=== PATIENT | female | born 1960 | race Caucasian/White ===

== ENCOUNTER → 2016-11-30 | Outpatient (CLI) | payer OTHER ==
[2016-11-30 12:23] LABS: ASPARTATE AMINO TRANSFERASE 29 IU/L (8-39); BILIRUBIN,TOTAL 0.5 mg/dL (0.3-1.2); BLOOD UREA NITROGEN 21 mg/dL (7-22); BUN/CREATININE RATIO 26.25 (6-20); CALCIUM 9.6 mg/dL (8.7-10.7); CHLORIDE 99 meq/L (98-112); CREATININE 0.8 mg/dL (0.50-1.20); EST GLOMERULAR FILTRATION > 60 (>60 ml/min/1.73m(2)); GLUCOSE 92 mg/dL (78-110); HDL CHOLESTEROL 74 mg/dL (40-150); POTASSIUM 4.7 meq/L (3.8-5.2); SODIUM 139 meq/L (135-145); TOTAL PROTEIN 7.9 g/dL (6.1-8.0); TRIGLYCERIDES 109 mg/dL (44-200)
[2016-11-30 12:24] LABS: CREATININE, URINE 134.5 MG/DL (15-500)
[2016-11-30 14:12] LABS: FREE T4 (FREE THYROXINE) 1.14 ng/dL (0.93-1.71)
== END ==
LOC: MOB LAB 11:12
PROVIDERS: ATTEND Nurse Practitioner Family
DX: E11.9 Type 2 diabetes mellitus without complications (principal); I10 Essential (primary) hypertension; E03.9 Hypothyroidism, unspecified; E66.01 Morbid (severe) obesity due to excess calories
CPT/HCPCS: 36415; 80053; 80061; 82043; 83036; 84439; 84443; 99213

== ENCOUNTER → 2016-12-15 | Outpatient (CLI) | payer OTHER ==
--- NOTE | 2016-12-15 13:18 | DI ---
RIGHT SHOULDER, 12/15/2016 11:31 AM: Clinical History: Right shoulder pain. Previous Exam: 09/07/2014. 3 views are submitted. There is no acute soft tissue, osseous, or joint abnormality. The patient is s tatus post resection of the lateral head of the clavicle. The visualized portions of the right apex a nd right lung are normal. There is a prominent amount of calcification in the first costosternal junc tion. Reading: Status post resection of the lateral head of the clavicle. The exam is otherwise normal.
--- NOTE | 2016-12-15 13:24 | DI ---
RIGHT WRIST, 12/15/2016 11:31 AM: Clinical History: Right wrist pain. Previous Exam: None at this facility. Comparison is made with views of the right little finger from 10/18/2012 that also contain views of the wrist. 3 views are submitted. There is no acute soft tissue, osseous, or joint abnormality. The distal radia l articular surface is depressed on the medial aspect corresponding to the lunate fossa and this andrade ent may have had previous trauma to the distal radius. Readin. There is no acute fracture or dislocation. 2. The articular surface of the distal radius may have undergone remodeling.
== END ==
LOC: ORTHO 12:01
PROVIDERS: ATTEND Orthopaedic Surgery
DX: M25.531 Pain in right wrist (principal); M25.511 Pain in right shoulder; Z98.890 Other specified postprocedural states; M19.031 Primary osteoarthritis, right wrist; M17.11 Unilateral primary osteoarthritis, right knee; M75.101 Unspecified rotator cuff tear or rupture of right shoulder, not specified as traumatic
CPT/HCPCS: 73030; 73110

== ENCOUNTER 2016-12-21 15:39 | Emergency (ER) | payer OTHER ==
[2016-12-21] MEDS ORDERED: Prochlorperazine Edisylate Inj 10mg/2ml vial IVP ONE (16:00)
[2016-12-21] MEDS ORDERED: diphenhydrAMINE 50 MG/1 ML VIAL IVP ONE (16:00)
[2016-12-21] MEDS ORDERED: KETOROLAC 30 MG/1 ML VIAL IVP ONE (16:00)
[2016-12-21] MEDS ORDERED: Sodium Chloride 0.9% 1,000 ML PRIMARY IV ONE (16:00)
[2016-12-21] MEDS ORDERED: Magnesium Sulfate 2gm (Premix) 2 GM in Premix 1 BAG IV ONE (16:00)
[2016-12-21] MEDS ORDERED: DEXAMETHASONE PF 10 MG/1 ML VIAL IV ONE (16:00)
--- NOTE | 2016-12-21 16:10 | PDOC ---
Headache HPI - General Chief Complaint: Headache Stated Complaint: MIGRAINE Date Seen by Provider: 12/21/16 Time Seen by Provider: 16:06 Source: POSITIVE: Patient Exam Limitations: POSITIVE: No limitations Nurse's Notes Reviewed & Considered: Yes - History of Present Illness Initial Comments: Patient developed a migraine today while undergoing MRI of her shoulder. History of migraines that she states her very frequent. States that this is not the worst migraine she has ever had but is more typical in nature. She denies any fever chills sweats. She does have nausea but no vomiting. Denies any diarrhea or constipation. She does have some blurry vision. No shortness breath, cough, or chest pain. Body Location Affected: REPORTS: Head Timing: REPORTS: Abrupt Duration: 1-3 hours Severity: Moderate Quality: REPORTS: "Pain", Throbbing Context: REPORTS: Other (History of migraine headaches) Associated Symptoms: REPORTS: Sensitivity to Light, Visual Disturb Preceding, Nausea Any Prior Injuries Related to Current Complaint?: No - Patient Home Medications Home Medications: Home Medications Ascorbic Acid [Vitamin C] 1,000 mg PO DAILY tab 11/27/12 Bee Pollen 1,160 mg PO DAILY cap 11/27/12 Beta-Carotene [Beta Carotene] 10,000 unit PO DAILY cap 11/27/12 Bone Meal/Ergocalciferol [Bone Meal-Vitamin D Tablet] 6 each PO DAILY tab 11/27 Calcium/Magnesium [Dolomite Tablet] 2 each PO DAILY tab 11/27/12 Lecithin 2,500 gm MC DAILY cap 11/27/12 Vitamin A 10,000 unit ORAL QD capsule 11/27/12 Vitamin A/Vitamin D3 [Vitamin A & D Softgel] 1 each PO DAILY cap 11/27/12 Vitamin E Acetate [Vitamin E] 800 unit PO DAILY cap 11/27/12 Blood Sugar Diagnostic [Freestyle Lite Test Strips] 1 each MC QID #120 strip 02/25 Nystatin [Nystop] 60 gm TP BID #1 bottle 01/18/15 Ropinirole HCl 1 tab PO HS PRN #30 tab 03/17/15 Tramadol HCl [Tramadol Hcl Er] 1 tab PO DAILY tab 02/04/16 Amitriptyline HCl 50 mg PO TID #270 tab 09/26/16 Clotrimazole/Betamethasone Dip [Lotrisone Cream] 0.5 gm TOPICAL BID #1 tube Levothyroxine Sodium 75 mcg ORAL QD #90 tab 11/30/16 Propranolol HCl 60 mg PO BID tab 11/30/16 - Patient Allergies Allergies/Adverse Reactions: Allergies Allergy/AdvReac Type Severity Reaction Status Date / Time codeine [Codeine] Allergy Severe ANAPHLAXIS Verified 07/21/16 14:17 acetaminophen [From Tylenol] Allergy Intermediate ANAPHLAXIS Verified 07/21/16 14:17 doxycycline [Doxycycline] Allergy Intermediate SWELLING Verified 07/21/16 14:17 ibuprofen [From Advil] Allergy Intermediate RASH Verified 07/21/16 14:17 iodine Allergy Intermediate RASH Verified 07/21/16 14:17 naproxen sodium [From Aleve] Allergy Intermediate RASH Verified 07/21/16 14:17 FUNGICIDES Allergy Severe SWELLING Uncoded 07/21/16 14:17 ARTIFICIAL SWEETNERS Allergy Intermediate DIFFICULTY Uncoded 07/21/16 14:17 SWALLOWING NUZHAT PRODUCTS Allergy Intermediate DIFFICULTY Uncoded 07/21/16 14:17 SWALLOWING CHLORINE Allergy Intermediate DIFFICULTY Uncoded 07/21/16 14:17 SWALLOWING PESTICIDES Allergy Intermediate RASH Uncoded 07/21/16 14:17 POWDERED EGGS Allergy Intermediate DIFFICULTY Uncoded 07/21/16 14:17 SWALLOWING SAGEBRUSH Allergy Mild RASH Uncoded 07/21/16 14:17 artificial butter AdvReac Severe elevates BP Uncoded 07/21/16 14:17 GREEK PAINTBRUSH AdvReac Intermediate NOT Uncoded 07/21/16 14:17 APPLICABLE hairspray AdvReac NOT Uncoded 07/21/16 14:17 APPLICABLE Past Medical History - heen HEENT History: Other (please comment) Additional HEENT History: hypersensitive hearing ,wears glasses Cardiovascular History: Hypertension, Other (please comment) Additional Cardiovasular History: VENOUS STASIS DERMATITIS Respiratory History: Sleep Apnea, Other (please comment) Additional Respiratory History: ON CPAP AT 16 CM Gastrointestinal History: Denies History, Other (please comment) Additional Gastrointestinal History: MORBID OBESITY Genitourinary History: Denies History Endocrine History: Type 2 Diabetes (diet), Type 2 Diabetes (oral), Hypothyroidism, Other (please comment) Additional Endocrine History: NUMULAR ECZEMA Musculoskeletal History: Other (please comment) Prosthesis or Implant: Yes (L knee replacement titanium) Additional Musculoskeletal History: 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, C5-6 BULGING WITH IMPINGEMENT ON R NEUROFORAMEN; RT SHOULDER SURGERY ("TEAR IN ROTATOR CUFF) Neurological History: Migraines Additional Neurological History: RESTLESS LEG SYNDROME Blood Disorders: Denies History Psychiatric History: Other (please comment) Additional Psychiatric History: had depression a few years ago ,insomnia History of Sexually Transmitted Diseases: No Cancer History: Denies History History of MDRO: No History of Other Communicable Diseases: No Alcohol Use: None Substance Use Type: None Previous Surgical History: Yes Type / Date of Surgery: L TKA KNEE, BILAT CARPAL TUNNEL, RIGHT KNEE SCOPE, RT SHOULDER (08/25/14) Anesthesia Reactions: No Malignant Hyperthermia: No Significant Family History: Other (please comment) Additional Family History: unknown ROS - Limitations ROS Limitations: No Limitations Constitution: REPORTS: Denies Symptoms Cardiovascular: REPORTS: Denies Cardiac Symptoms Respiratory: REPORTS: Denies Resp Symptoms Neurological: REPORTS: Headache Gastrointestinal: REPORTS: Nausea Endocrine: REPORTS: Denies Symptoms Musculoskeletal: REPORTS: Denies MS Symptoms Genitourinary: REPORTS: Denies Symptoms Eyes: REPORTS: Eye Pain, Vision Changes ENT: REPORTS: Denies Symptoms Skin: REPORTS: Denies Skin Symptoms Lympathic: REPORTS: Denies Lympathic Symptoms Immunologic: POSITIVE: Denies Symptoms Psychiatric: POSITIVE: Denies Psych Symptoms Headache Exam - General Appearance General Appearance: POSITIVE: Alert, Cooperative, No Evidence of Trauma, Moderate Distress - HEENT Head / Face: POSITIVE: Atraumatic, Normal Inspection, No Facial Swelling Eyes: POSITIVE: Inspection Normal, PERRL, EOM's Intact, Eyelids Uninjured, No Nystagmus, No Globe Trauma, Sclera Normal Ears: POSITIVE: Ears Normal Inspection, Auricle Normal Nose: POSITIVE: Inspection Normal, No Apparent Trauma, Nares Normal, No CSF Leak Oropharynx: POSITIVE: External Inspection Nml, Pharynx Inspect. Nml, Airway Intact, Voice Normal, Moist Mucous Membranes, No Oral Injury, Lips Normal, Gums Normal, No Drooling, No Thrush Dental: POSITIVE: No Dental Injury - Pupil Size Pupil Size: 4 mm: Bilateral - Neck Neck: POSITIVE: Normal Inspection, Supple - Respiratory / CVS Respiratory / CVS: POSITIVE: Chest Non-Tender, No Respiratory Distress, Heart Sounds Normal, Regular Rate/Rhythm - Abdomen Abdomen: Soft: (All Quadrants), Normal Bowel Sounds: (All Quadrants), Denies Tenderness: (All Quadrants) - Skin Skin: POSITIVE: Intact, Normal Palpation - Extremities Extremity: Non-Tender: (All Extremities), Normal ROM: (All Extremities), Normal Inspection: (All Extremities) - Neuro / Psych Higher Functions: POSITIVE: Alert, Oriented x3, Normal Speech, Mood Appropriate , Affect Appropriate Cranial Nerves: POSITIVE: Normal As Tested, No Evidence of Acute CVA Cerebellar: POSITIVE: Normal As Tested Sensorimotor: POSITIVE: No Motor Deficits, No Sensory Deficits Headache Progress - Results Reviewed by me Lab Results Reviewed: Yes Lab Results:: Laboratory Results 12/21/16 Range/Units 15:50 Sodium 140 (135-145) meq/L Potassium 4.2 (3.8-5.2) meq/L Chloride 100 (98-112) meq/L Carbon Dioxide 28 (23-33) meq/L Anion Gap 12 (5-20) BUN 15 (7-22) mg/dL Creatinine 0.6 (0.50-1.20) mg/dL Estimated GFR > 60 (>60 ml/min/1.73m(2)) BUN/Creatinine Ratio 25.00 H (6-20) Glucose 99 (78-110) mg/dL Calculated Osmolality 290.0 (267-292) mOsm/kg Calcium 9.4 (8.7-10.7) mg/dL Magnesium 2.1 (1.6-2.4) mg/dL Total Bilirubin 0.8 (0.3-1.2) mg/dL AST 31 (8-39) IU/L ALT 31 (9-52) IU/L Alkaline Phosphatase 145 H (38-126) IU/L Total Protein 8.0 (6.1-8.0) g/dL Albumin 4.2 (3.5-4.8) g/dL Globulin 3.8 (2.50-4.10) g/dL Albumin/Globulin Ratio 1.10 L (1.3-2.0) mg/g - Patient's Progress Pain Medication Addressed: POSITIVE: Yes Re-Examine Time:: 17:02 Status: POSITIVE: Improved MDM / ED Course: Patient was examined, an IV started, blood drawn and sent to the lab for studies. Patient received a cocktail of saline, Toradol, dexamethasone, Benadryl, magnesium, and Compazine. Her headache resolved. Assessment: Migraine headache Plan: Discharge home follow up with primary care physician. - Consult Counseled: POSITIVE: Patient, RE: Lab Results, RE: DX, RE: Need for F/U Patient Care Time - Estimated PCT Patient Care Time (In Minutes): 30 Vital Signs - VS Reviewed Vital Signs Reviewed: Yes Discharge Clinical Impression: Migraine headache Discharge Disposition: Discharged to Home Condition: Good Patient Instructions Given at Discharge: Migraine Headache (ED)
[2016-12-21 16:22] LABS: ASPARTATE AMINO TRANSFERASE 31 IU/L (8-39); BILIRUBIN,TOTAL 0.8 mg/dL (0.3-1.2); BLOOD UREA NITROGEN 15 mg/dL (7-22); CALCIUM 9.4 mg/dL (8.7-10.7); CHLORIDE 100 meq/L (98-112); CREATININE 0.6 mg/dL (0.50-1.20); EST GLOMERULAR FILTRATION > 60 (>60 ml/min/1.73m(2)); GLUCOSE 99 mg/dL (78-110); MAGNESIUM 2.1 mg/dL (1.6-2.4); POTASSIUM 4.2 meq/L (3.8-5.2); SODIUM 140 meq/L (135-145)
[2016-12-21 17:21] VITALS: RESP 16; TEMP 97.2
== END 2016-12-21 17:15 | disposition home or self-care (01) ==
LOC: ER 15:39
DX: G43.009 Migraine without aura, not intractable, without status migrainosus (principal); R11.0 Nausea; H53.8 Other visual disturbances; E11.9 Type 2 diabetes mellitus without complications; M25.511 Pain in right shoulder; S43.431A Superior glenoid labrum lesion of right shoulder, initial encounter; S46.811A Strain of other muscles, fascia and tendons at shoulder and upper arm level, right arm, initial encounter
CPT/HCPCS: 80053; 83735; 84443; 96361; 96365; 96375; 99282 ×2; J1200; J1885; 73221; J0780; J1100; J3475; J7030

== ENCOUNTER → 2016-12-21 | Outpatient (CLI) | payer OTHER ==
--- NOTE | 2016-12-23 21:07 | DI ---
MRI RIGHT SHOULDER SCAN, 12/21/2016 1:52 PM: Clinical History: Right shoulder pain. Previous Exam: 07/13/2014. Technique: Axial, coronal, and sagittal fat saturated PD; axial gradient FE; coronal fat saturatedT2 weighted; sagittal T2 weighted. Because of the size of the patient, it was difficult to position the right shoulder closed to the center of the magnetic field for optimal homogeneity. There is no soft tissue edema or joint effusion. Cystic degenerative changes are present in the humer al head in proximity to the attachment of the infraspinatus tendon. There is a small 10 mm paralabral cyst inferior to the labrum at the 6:00 position. The lateral head of the clavicle has been resected and there is a type I acromion. There is an articular surface partial thickness tear of the distal a spect of the conjoined tendon that measures 10 x 5 mm in transverse and AP dimensions. There is suspe cted mild tendinosis of the subscapularis, supraspinatus, and infraspinatus tendons. The teres minor tendon is normal. The tendon of the long head of the biceps muscle is not visualized in the rotator i nterval and this patient may have had resection with tenodesis. There is a type II SLAP tear with pos terior extension into the posterosuperior and posteroinferior quadrants terminating near the 6:00 pos ition where the paralabral cyst is visualized. There is no significant muscle atrophy or fatty infilt ration. Readin. Status post resection of the lateral head of the clavicle with probable tenodesis of the biceps t endon to the humeral head. There is a type II SLAP tear with posterior extension into the posterior s uperior and posterior inferior quadrants terminating at the 6:00 position where there is a 10 mm para labral cyst. There is an articular surface partial thickness tear of the conjoined tendon that measur es 10 x 5 mm in transverse and AP dimensions. Suspected tendinosis is present in the supraspinatus, i nfraspinatus, and subscapularis tendons. 2. The teres minor tendon is normal. There is a type I acromion. No muscle atrophy is identified.
== END ==
LOC: MRI 13:46
PROVIDERS: ATTEND Orthopaedic Surgery
DX: M25.511 Pain in right shoulder (principal); S43.431A Superior glenoid labrum lesion of right shoulder, initial encounter; S46.811A Strain of other muscles, fascia and tendons at shoulder and upper arm level, right arm, initial encounter
CPT/HCPCS: 73221

== ENCOUNTER → 2016-12-28 | Outpatient (CLI) | payer OTHER | LOC: MMPC 10:00 | PROVIDERS: ATTEND Orthopaedic Surgery | DX: M25.511 Pain in right shoulder (principal); Z98.890 Other specified postprocedural states | CPT/HCPCS: 99213; G0463 ==

== ENCOUNTER → 2017-02-15 | Outpatient (CLI) | payer OTHER | LOC: MMPC 10:00 | PROVIDERS: ATTEND Orthopaedic Surgery | DX: M75.41 Impingement syndrome of right shoulder (principal) | CPT/HCPCS: 99213; G0463 ==

== ENCOUNTER → 2017-04-23 | Outpatient (CLI) | payer OTHER | LOC: MMPC 10:00 | PROVIDERS: ATTEND Orthopaedic Surgery | DX: M17.12 Unilateral primary osteoarthritis, left knee (principal) | CPT/HCPCS: 20610 ×2; G0463; J0702 ==